=== PATIENT | female | born 1990 | race Caucasian/White ===

== ENCOUNTER → 2020-05-14 16:12 | Outpatient (REF) | payer OTHER, SELFPAY | LOC: ANHLAB 16:12 | PROVIDERS: Visit Provider Surgery Plastic and Reconstructive Surgery | DX: L72.8 Other follicular cysts of the skin and subcutaneous tissue (principal) | CPT/HCPCS: 88304 ==

== ENCOUNTER → 2020-12-15 09:10 | Outpatient (CLI) | payer OTHER, SELFPAY ==
--- NOTE | ~2020-12-15 | CT_ITS ---
EXAMINATION: CT soft tissue neck w con DATE: 12/15/2020 09:36 INDICATION: Neck lump. TECHNIQUE: Computed tomography (CT) of the neck was performed with 75 mL Omnipaque-350 intravenous co ntrast. Automated exposure control and iterative reconstruction technique were employed. The dose-cole gth product was 410.72 mGy-cm. COMPARISON: None FINDINGS: There is a skin marker at the right posterior neck. There is no abnormal mass in this area. There are no pathologically enlarged lymph nodes. The cervical carotid arteries are normal. There ar e mucous retention cysts in the sphenoid and left maxillary sinuses. The mastoid air cells are normal . There is mild cervical spondylosis. IMPRESSION: 1. No abnormal mass or lymphadenopathy. Reviewed, dictated and finalized at location A.
== END ==
PROVIDERS: Visit Provider Otolaryngology
DX: R22.1 Localized swelling, mass and lump, neck (principal)
CPT/HCPCS: 70491; Q9967

== ENCOUNTER 2025-08-26 15:56 | Emergency (ER) | payer OTHER, SELFPAY ==
[2025-08-26 16:10] VITALS: BP 134/93; PULSE 76; RESP 18; TEMP 36.6; O2SAT 100
--- NOTE | 2025-08-26 16:31 | ED_ITS ---
HPI - General Adult General Chief complaint: Skin/Abscess/Foreign Body Stated complaint: anal pain Source: patient Mode of arrival: ambulatory Limitations: no limitations History of Present Illness HPI narrative: this is a 34-year-old female who presents to the urgent care today with reports a lump that is painful on her rectum. Patient states she woke up with pain in her rectal area. She wore a thong to bed, she believed this was why it hurt. will be morning she used hemorrhoid cream with lidocaine which relieved the pain. She states does agree more often began to hurt again so she presents to the urgent care for evaluation. She denies any bleeding, she denies any difficulty with bowel movements. She denies any nausea, vomiting or diarrhea. Location: buttocks Radiation: non-radiation Severity: mild Quality: aching Pain Consistency: intermittent Relieving factors: medication Exacerbating factors: none Associated symptoms: denies other symptoms Treatments prior to arrival: other ( Hemorrhoid cream) Related Data Home Medications ?Medication ?Instructions ?Recorded ?Confirmed ?Last Taken ?Type bupropion HCl 300 mg 24 hr tablet, mg PO 08/26/25 Unk nown History extended release dextroamphetamine-amphetamine 10 08/26/25 Unknown Hi story mg tablet Allergies Allergy/AdvReac Type Severity Reaction Status Date / Time hydrocodone Allergy Mild Hives Verified 08/26/25 16:17 Review of Systems Review of Systems: All systems reviewed & are unremarkable except as noted in HPI and below PMFSH Surgical History Surgical History History of tonsillectomy Exam Const: General: healthy appearing Nutritional Appearance: well nourished Orientation/consciousness: patient oriented x3 Limitations: no limitations HENMT: Head: normal to inspection Face and sinus: normal facial exam Mouth: Yes Normal oral and palatal mucosa present Teeth and gingiva: dentition normal Eyes: Conjunctivae: conjunctivae normal Pupils: Equal, round and reactive pupils present EOM: EOMs intact bilaterally Neck: Neck: normal visual inspection and no lymphadenopathy Resp: Effort & Inspection: normal respiratory effort Auscultation: clear to auscultation bilaterally Cardio: Rate: regular rate Rhythm: regular rhythm GI: GI Palp: Yes Soft to palpation Auscultation: normal bowel sounds Rectal Exam: normal sphincter tone and hemorrhoids (noted at the 3 o'clock of rectum. ) Back/Spine/Pelvis: Back: no CVA tenderness Skin: General skin exam: normal color Rashes: no rashes Wounds: no wounds Neuro: General: patient oriented x3 Cranial nerves: Yes Nystagmus not present Speech: normal speech Gait exam (Neuro): Normal gait present Extrem: General: normal to inspection and no clubbing, cyanosis or edema Psych: Mental Status: mental status grossly normal Affect: normal affect Attitude: cooperative Course Course Emergency Course: this is a 34-year-old female who presents to the urgent care today with reports a lump that is painful on her rectum. Patient states she woke up with pain in her rectal area. She wore a thong to bed, she believed this was why it hurt. will be morning she used hemorrhoid cream with lidocaine which relieved the pain. She states does agree more often began to hurt again so she presents to the urgent care for evaluation. She denies any bleeding, she denies any difficulty with bowel movements. She denies any nausea, vomiting or diarrhea. vital signs stable patient educated on exam and possible concerning symptoms. During exam noted the patient has hemorrhoid at the 3 o'clock area on her rectum. Nonthrombosed, no erythema or edema. No bleeding noted. No excoriation. Educated patient on findings, treatment, and outpatient management. Answered all questions to her satisfaction she is agreeable to this plan to follow-up with her PCP for possible referral if symptoms worsen or continue. Educated patient to rest, avoid strenuous activity, continue with hemorrhoid cream with lidocaine, continue with tucks pads as instructed, avoid straining to have bowel movements, wear cotton underwear, shift weight when sitting often, follow up with your primary MD for further exam and treatment, return to the ER or urgent care with any worrisome sign or symptom. patient denies any further needs or concerns to be addressed prior to discharge Level of Care: Express Care Visit Vital Signs Vital signs: Vital Signs Temperature 97.9 F 08/26/25 16:10 Pulse Rate 76 08/26/25 16:10 Respiratory Rate 18 08/26/25 16:10 Blood Pressure 134/93 H 08/26/25 16:10 Pulse Oximetry 100 08/26/25 16:10 Oxygen Delivery Room Air 08/26/25 16:10 Temperature 97.9 F 08/26/25 16:10 Pulse Rate 76 08/26/25 16:10 Respiratory Rate 18 08/26/25 16:10 Blood Pressure 134/93 H 08/26/25 16:10 Pulse Oximetry 100 08/26/25 16:10 Oxygen Delivery Room Air 08/26/25 16:10 MDM MDM Narrative Medical decision making narrative: this is a 34-year-old female who presents to the urgent care today with reports a lump that is painful on her rectum. Patient states she woke up with pain in her rectal area. She wore a thong to bed, she believed this was why it hurt. will be morning she used hemorrhoid cream with lidocaine which relieved the pain. She states does agree more often began to hurt again so she presents to the urgent care for evaluation. She denies any bleeding, she denies any difficulty with bowel movements. She denies any nausea, vomiting or diarrhea. vital signs stable patient educated on exam and possible concerning symptoms. During exam noted the patient has hemorrhoid at the 3 o'clock area on her rectum. Nonthrombosed, no erythema or edema. No bleeding noted. No excoriation. Educated patient on findings, treatment, and outpatient management. Answered all questions to her satisfaction she is agreeable to this plan to follow-up with her PCP for possible referral if symptoms worsen or continue. Educated patient to rest, avoid strenuous activity, continue with hemorrhoid cream with lidocaine, continue with tucks pads as instructed, avoid straining to have bowel movements, wear cotton underwear, shift weight when sitting often, follow up with your primary MD for further exam and treatment, return to the ER or urgent care with any worrisome sign or symptom. patient denies any further needs or concerns to be addressed prior to discharge Differential Diagnosis Differential Diagnosis: STI, hemorrhoids, rectal fissure Medical Records I have reviewed the following patient records and this information was taken into consideration when formulating the assessment and plan.: previous clinic visits Discharge Plan Discharge Clinical Impression: Hemorrhoid Qualifiers: Hemorrhoid type: unspecified Qualified Code(s): K64.9 - Unspecified hemorrhoids Patient Disposition: Home Condition: Unstable Instructions: Hemorrhoids (ED) Additional Instructions: rest avoid strenuous activity continue with hemorrhoid cream with lidocaine continue with tucks pads as instructed avoid straining to have bowel movements wear cotton underwear shift weight when sitting often follow up with your primary MD for further exam and treatment return to the ER or urgent care with any worrisome sign or symptom. Patient Language: Grenadian Prescriptions: No Action dextroamphetamine-amphetamine 10 mg tablet bupropion HCl 300 mg tablet extended release 24 hr PO cephalexin [Keflex] 250 mg capsule 250 mg PO Q6H Qty: 28 0RF Follow-up/Referrals: Mony,FLACO Abel [Primary Care Provider, Unknown] Time of Disposition: 16:34
--- OUTSIDE RECORDS SUMMARY | 2025-08-26 17:09 | XMS_ITS | Encounter Summary ---
Author Organization [facility] Address [address] [place] [address] Care Team Providers Care Director Of Strategic Marketing Name Role Phone Kristal Sykes NP Primary Care Provider [phone] Encounter Details Date Type Department Care Team (Late st Contact Info) Description 03/01/2023 Bizot Message Enc [facility] Family [facility] - [place] [address] [facility] [address] [place] [id number] Kristal Sykes, ABENA [address] [place] [address] Wellbutrin Refill Social History Tobacco Use Types Packs/Day Years Used Date Smoking Tobacco: Never Passive Smoke Exposure: Never Smokeless Tobacco: Never Alcohol Use Standard Drinks/Week Comments Yes 0 (1 standard drink = 0.6 oz pur e alcohol) Rare, maybe once a month Humiliation, Afraid, Rape, and Kick questionnair e Answer Date Recorded Within the last year, have y ou been afraid of your partner or ex-partner? No 08/11/2022 Within the last year, have y ou been humiliated or emotionally abused in other ways by your partner or ex-partner? No Within the last year, have y ou been kicked, hit, slapped, or otherwise physically hurt by your partner or ex-partner? No 08/11/2022 Within the last year, have y ou been raped or forced to have any kind of sexual activity by your partner or ex-partner? No 08/11/2022 Social Connection and Isolation Panel Answer Date Recorded In a typical week, how many times do you talk on the phone with family, friends, or neighbors? More than three times a week 08/11/2022 How often do you get togethe r with friends or relatives? More than three times a week 08/11/2022 How often do you attend chur or sikhism services? 1 to 4 times per year 08/11/2022 Do you belong to any clubs o r organizations such as zoroastrianism groups, unions, fraternal or athletic groups, or school groups? No 08/11/2022 How often do you attend meet ings of the clubs or organizations you belong to? Never 08/11/2022 Are you , , di vorced, , never , or living with a partner? 08/11/2022 AUDIT-C Answer Date Recorded Q1: How often do you have a drink containing alcohol? Never 08/11/2022 Q2: How many drinks containi ng alcohol do you have on a typical day when you are drinking? Patient does not drink Q3: How often do you have si x or more drinks on one occasion? Never 08/11/2022 Overall Financial Resource Strain (CARDIA) Answe r Date Recorded How hard is it for you to pa y for the very basics like food, housing, medical care, and heating? Not hard at all 08/11/2022 PHQ-2 Answer Date Recorded Patient Health Questionnaire-2 Score 1 12/22/2022 [facility]ational Stress Questionnaire Answer Date Recorded Do you feel stress - tense, restless, nervous, or anxious, or unable to sleep at night because your mind is troubled all the time - these days? Not at all 08/11/2022 Exercise Vital Sign Answer Date Recorde d On average, how many days pe r week do you engage in moderate to strenuous exercise (like a brisk walk)? 4 days 08/11/2022 On average, how many minutes do you engage in exercise at this level? 30 min 08/11/2022 Hunger Vital Sign Answer Date Recorded Within the past 12 months, y ou worried that your food would run out before you got the money to buy more. Never true 08/11/20 22 Within the past 12 months, t he food you bought just didn't last and you didn't have money to get more. Never true 08/11/2022 PRAPARE - Transportation Answer Date Re corded In the past 12 months, has l ack of transportation kept you from medical appointments or from getting medications? No 03/2022 In the past 12 months, has l ack of transportation kept you from meetings, work, or from getting things needed for daily living? No 08/11/2022 Housing Stability Vital Sign Answer Francis e Recorded In the last 12 months, was t here a time when you were not able to pay the mortgage or rent on time? No 08/11/2022 In the last 12 months, how many places have you lived? 2 08/11/2022 In the last 12 months, was t here a time when you did not have a steady place to sleep or slept in a jail (including now)? No 08/11/2022 Depression Answer Date Recor ded Last EPDS Total Score 2 08/15/2022 Last EPDS Self Harm Result Sometimes 08/15 Comments No Sex and Gender Information Value Date Recorded Sex Assigned at Not on file Legal Sex Female 6:06 PM CDT Gender Identity Not on file Sexual Orientation Not on file documented as of this encounter Functional Status * RETIRED Are you deaf or do you have serious difficulty hearing Answer Date of Assessment Author Status No 08/11/2022 8:32 PM HOT FRAME TENDER Activ e * RETIRED Are you blind or do you have serious difficulty seeing, even when wearing glasses? Answer Date of Assessment Author Status No 08/11/2022 8:32 PM HOT FRAME TENDER Activ e * Do you have serious difficulty walking or climbing stairs? Answer Date of Assessment Author Status No 08/11/2022 8:32 PM Pearl Tobias RN Active * Do you have difficulty dressing or bathing? Answer Date of Assessment Author Status No 08/11/2022 8:32 PM Pearl Tobias RN Active * Because of a physical, mental, or emotional condition, do you have difficulty doing errands alone such as visiting a doctor's office or shopping? Answer Date of Assessment Author Status No 08/11/2022 8:32 PM Pearl Tobias RN Active documented as of this encounter Mental Status * Because of a physical, mental, or emotional condition, do you have serious difficulty concentrating, remembering, or making decisions? Answer Entry Date Author Status No 08/11/2022 8:32 PM HOT FRAME TENDER Pearl Addison RN Active documented in this encounter Plan of Treatment Not on file documented as of this encounter Visit Diagnoses Not on filedocumented in this encounter Additional Health Concerns Infection Onset Date Last Indicated Resolved Time COVID-19 Rule Out 09/08/2023 09/08/2023 09/08/2023 2:24 PM HOT FRAME TENDER COVID-19 Rule Out 11/02/2023 11/02/2023 11/02/2023 4:27 PM HOT FRAME TENDER Assessment Noted Time PHQ-9 Depression Total Score: 11 023 11:20 AM CDT documented as of this encounter Care Teams Director Of Strategic Marketing Relationship Specialty Start Date End Date Kristal Sykes NP [address] [place] [address] PCP - General NURSE PRACTITIONER 12/20/22 documented as of this encounter
--- OUTSIDE RECORDS SUMMARY | 2025-08-26 17:09 | XMS_ITS | Encounter Summary ---
Author Organization [facility] Address [facility] [place] [address] Care Team Providers Care Tea Blender Name Role Phone Lauryn Landers [employer] Primary Care Provider [phone] Kristal Sykes [employer] Primary Care Provider [phone] Encounter Details Date Type Department Care Team (Late Contact Info) Description 08/26/2022 ADTELLIGENCE Message [facility] [employer] [facility] [address] [place] [address] Doculynxalba, [facility] Provider Proof of Name Change Needed Social History Tobacco Use Types Packs/Day Years Used Date Smoking Tobacco: Never Smokeless Tobacco: Never Alcohol Use Standard Drinks/Week Comments Never 0 (1 standard drink = 0.6 oz pur e alcohol) Humiliation, Afraid, Rape, and Kick questionnair e [...] How often do you attend chur or sabianist services? 1 to 4 times per year 08/11/2022 Do you belong to any clubs o r organizations such as druze groups, unions, fraternal or athletic groups, or [...] at all 08/11/2022 PHQ-2 Answer Date Recorded PHQ-2 Score 0 12/25/2018 [facility] - Occupational Stress Questionnaire Answer Date Recorded [...] place to sleep or slept in a intermediate (including now)? No 08/11/2022 Depression Answer Date Recor ded Last EPDS Total Score 2 08/15/2022 Last EPDS Self Harm Result Sometimes 08/15 Comments No Sex and Gender Information Value Date Recorded Sex Assigned at Not on file Legal Sex Female 6:06 PM CDT Gender Identity Not on file Sexual Orientation Not on file COVID-19 Exposure Response Date Recorded In the last 10 days, have yo u been in contact with someone who was confirmed or suspected to have Coronavirus/COVID-19? No / Unsure 08/11/2022 8:20 PM LINING INSERTER documented as of this encounter Functional Status * RETIRED Are you deaf or do you have serious difficulty hearing Answer Date of Assessment Author Status No 08/11/2022 8:32 PM LINING INSERTER Activ e * RETIRED Are you blind or do you have serious difficulty seeing, even when wearing glasses? Answer Date of Assessment Author Status No 08/11/2022 8:32 PM LINING INSERTER Activ e * Do you have serious difficulty walking or climbing stairs? Answer Date of Assessment Author Status No 08/11/2022 8:32 PM LINING INSERTER Pearl Addison RN Active * Do you have difficulty dressing or bathing? Answer Date of Assessment Author Status No 08/11/2022 8:32 PM LINING INSERTER Pearl Addison RN Active * Because of a physical, mental, or emotional condition, do you have difficulty doing errands alone such as visiting a doctor's office or shopping? Answer Date of Assessment Author Status No 08/11/2022 8:32 PM LINING INSERTER Wells, Pearl C, RN Active documented as of this encounter Mental Status * Because of a physical, mental, or emotional condition, do you have serious difficulty concentrating, remembering, or making decisions? Answer Entry Date Author Status No 08/11/2022 8:32 PM LINING INSERTER Pearl Addison RN Active documented in this encounter Plan of Treatment Not on file documented as of this encounter Visit Diagnoses Not on filedocumented in this encounter Additional Health Concerns Infection Onset Date Last Indicated Resolved Time COVID-19 Rule Out 09/08/2023 09/08/2023 09/08/2023 2:24 PM LINING INSERTER COVID-19 Rule Out 11/02/2023 11/02/2023 11/02/2023 4:27 PM LINING INSERTER Assessment Noted Time PHQ-9 Depression Total Score: 4 12/21/19 19 12:27 PM CDT documented as of this encounter Care Teams Tea Blender Relationship Specialty Start Date End Date Lauryn Landers NP [address] [facility], [place] [address] PCP - General Nurse Practitioner Family 12/19/1812/04 Kristal Sykes NP [address] [place] [address] PCP - General NURSE PRACTITIONER 12/20/22 documented as of this encounter
--- OUTSIDE RECORDS SUMMARY | 2025-08-26 17:09 | XMS_ITS | Encounter Summary ---
Author Organization [facility] Address [address] [place] [address] Care Team Providers Care Leather Belt Maker Name Role Phone Unavailable Primary Care Provider Unavailabl e Prior Encounters Date Type Department Care Team Description 06/03/2022 Travel 06/03/2022 2:00 PM CDT Office Visit [facility] [address], [facility] [address] [place] [address] Kelsey Newell, [facility] 06/01/2022 Travel 06/01/2022 3:00 PM CDT Office Visit [facility] [address], [facility] [address] [place] [address] Kelsey Newell, [facility] 05/17/2022 Travel 05/17/2022 1:00 PM CDT Office Visit [facility] [address], [place] [address] [place] [address] Mindi Espana, DDS 04/21/2022 Travel 04/21/2022 12:00 PM CDT Office Visit [facility] [address], [place] [address] [place] [address] Mikayla Kaiser, DMD 09/24/2019 Converted 13x Documents [facility] [address], [address] [place] [phone] <No scans attached> 09/24/2019 Converted CPS Chart Documents [facility] [address], [address] [place] [phone] <No scans attached> 09/24/2019 Converted CPS Chart Documents [facility] [address], [address] [place] [phone] <No scans attached> 09/24/2019 Converted 13x Documents [facility] [place] [facility] [address] [place] [phone] <No scans attached> Last Filed Vital Signs Vital Sign Reading Time Taken Comments Blood Pressure 126/72 06/01/2022 5:34 PM CDT Pulse - - Temperature - - Respiratory Rate - - Oxygen Saturation - - Inhaled Oxygen Concentration - - Weight - - Height - - Body Mass Index - - Plan of Treatment Not on file Procedures Procedure Name Priority Date/Time Associated Diagnosis Comments TOPICAL APPLICATION OF FLUORIDE VARNISH Routine 06/03/2022 2:00 PM CDT UL PERIODONTAL SCALING AND ROOT PLANING - ONE TO THREE TEETH PER QUADRANT Routine 06/03/2022 2:00 PM CDT LL PERIODONTAL SCALING AND ROOT PLANING - ONE TO THREE TEETH PER QUADRANT Routine 06/03/2022 2:00 PM CDT ORAL HYGIENE INSTRUCTIONS Routine 2021 3:00 PM CDT LR PERIODONTAL SCALING AND ROOT PLANING - ONE TO THREE TEETH PER QUADRANT Routine 06/01/2022 3:00 PM CDT UR PERIODONTAL SCALING AND ROOT PLANING - ONE TO THREE TEETH PER QUADRANT Routine 06/01/2022 3:00 PM CDT INTRAORAL PHOTO Routine 05/17/2022 1:00 PM CDT INTRAORAL PHOTO Routine 05/17/2022 1:00 PM CDT INTRAORAL PHOTO Routine 05/17/2022 1:00 PM CDT INTRAORAL PHOTO Routine 05/17/2022 1:00 PM CDT INTRAORAL - COMPREHENSIVE SERIES OF RADIOGRAPHIC IMAGES Routine 05/17/2022 1:00 PM CDT COMPREHENSIVE ORAL EVALUATION - NEW OR ESTABLISHED PATIENT Routine 05/17/2022 1:00 PM CDT 31 CEREC CROWN Routine 05/17/2022 12:00 AM CDT 31 ROOT CANAL Routine 05/17/2022 12:00 AM CDT BITEWING - SINGLE RADIOGRAPHIC IMAGE Routine 04/21/2022 12:00 PM CDT ADDITIONAL X-RAY Routine 04/21/2022 12:0 0 PM CDT LIMITED ORAL EVALUATION - PROBLEM FOCUSED Routine 04/21/2022 12:00 PM CDT MISSED APPOINTMENT Routine 09/07/2016 1: 00 AM MST ORTHO CONSULT Routine 03/09/2016 1:00 AM MDT ADJUNCTIVE PRE-DIAGNOSTIC TEST THAT AIDS IN DETECTION OF MUCOSAL ABNORMALITIES Routine 02/18/2016 1:00 AM MDT ORAL HYGIENE INSTRUCTIONS Routine 2015 1:00 AM MDT PROPHYLAXIS - ADULT Routine 02/18/2016 1 :00 AM MDT COMPREHENSIVE ORAL EVALUATION - NEW OR ESTABLISHED PATIENT Routine 02/18/2016 1:00 AM MDT PANORAMIC RADIOGRAPHIC IMAGE Routine 02/18/2016 1:00 AM MDT BITEWINGS - FOUR RADIOGRAPHIC IMAGES Routine 02/18/2016 1:00 AM MDT SINGLE X-RAY Routine 02/18/2016 1:00 AM MDT SINGLE X-RAY Routine 02/18/2016 1:00 AM MDT SINGLE X-RAY Routine 02/18/2016 1:00 AM MDT SINGLE X-RAY Routine 02/18/2016 1:00 AM MDT SINGLE X-RAY Routine 02/18/2016 1:00 AM MDT SINGLE X-RAY Routine 02/18/2016 1:00 AM MDT INTRAORAL PHOTO Routine 02/18/2016 1:00 AM MDT INTRAORAL PHOTO Routine 02/18/2016 1:00 AM MDT INTRAORAL PHOTO Routine 02/18/2016 1:00 AM MDT INTRAORAL PHOTO Routine 02/18/2016 1:00 AM MDT INTRAORAL PHOTO Routine 02/18/2016 1:00 AM MDT INTRAORAL PHOTO Routine 02/18/2016 1:00 AM MDT INTRAORAL PHOTO Routine 02/18/2016 1:00 AM MDT INTRAORAL PHOTO Routine 02/18/2016 1:00 AM MDT INTRAORAL PHOTO Routine 02/18/2016 1:00 AM MDT INTRAORAL PHOTO Routine 02/18/2016 1:00 AM MDT CANCELLED APPOINTMENT Routine 02/11/2016 1:00 AM MDT Visit Diagnoses Not on file Insurance PPO
--- OUTSIDE RECORDS SUMMARY | 2025-08-26 17:09 | XMS_ITS | Encounter Summary ---
Author Organization [facility] Address [address] [place] [address] Care Team Providers Care Mica Washer Gluer Name Role Phone Kristal Sykes NP Primary Care Provider [phone] Encounter Details Date Type Department Care Team (Late st Contact Info) Description 11/07/2023 Resident Researcht Message Enc [facility] Medical [facility] Family Medicine - [place] [address] [facility] [address] [place] [id number] Kristal Sykes, ABENA [address] [place] [address] Follow up Social History Tobacco Use Types Packs/Day Years [...] 08/11/2022 How often do you attend chur ch or cheondoism services? 1 to 4 times per year 08/11/2022 Do you belong to any clubs o r organizations such as judaism groups, unions, fraternal or athletic groups, or [...] Recorded Patient Health Questionnaire-2 Score 1 12/22/2022 [facility] - Occupational Stress Questionnaire Answer [...] place to sleep or slept in a mcc (including now)? 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 Answer Date of Assessment Author Status No 08/11/2022 8:32 PM ASSISTANT PROFESSOR OF DRAMA Activ e * Do you have serious [...] Date Author Status No 08/11/2022 8:32 PM ASSISTANT PROFESSOR OF DRAMA Pearl Addison RN Active documented in this encounter Plan of Treatment Not on file documented as of this encounter Visit Diagnoses Not on filedocumented in this encounter Additional Health Concerns Assessment Noted Time PHQ-9 Depression Total Score: 11 023 11:20 AM CDT documented as of this encounter Care Teams Mica Washer Gluer Relationship Specialty Start Date End Date Kristal Sykes NP [address] [place] [address] PCP - General NURSE PRACTITIONER 12/20/22 documented as of this encounter
--- OUTSIDE RECORDS SUMMARY | 2025-08-26 17:09 | XMS_ITS | Clinical Summary ---
Author Organization [facility] Health Address [address] [facility] [place] [address] Care Team Providers Care Mink Farmer Name Role Phone Unavailable Primary Care Provider Unavailabl e Allergies Active Allergy Reactions Criticality Noted Date Comments Meperidine Hives Low 12/20/2018 Other reaction(s): Hives Other reaction(s): Hives Other reaction(s): Hives Other reaction(s): Hives Other reaction(s): Hives Other reaction(s): Hives Other reaction(s): Hives Other reaction(s): Hives Other reaction(s): Hives Other reaction(s): Hives Other reaction(s): Hives Other reaction(s): Hives Medications [id number] C ACID ORAL Take by mouth. Active buPROPion (WELLBUTRIN) 37.5 MG tablet 01/21/2022 Acti ve buPROPion XL (WELLBUTRIN XL) 150 mg 24 hr tablet 01/22/2022 Active escitalopram (LEXAPRO) 10 mg tablet Take 1/2 tablet for 7 days then increase to 1 tablet in the morning 04/27/2021 Active Active Problems Problem Noted Date Diagnosed Date 01/11/2022 Overview (05/17/2022): Dating: uLMP, by 8 week US Rh status: pos Indication for bASA: no Genetics: low risk Anatomy: scheduled Gender: its a girl! DMS: early DMS today GBS: Tdap: Flu: [ ] Offer COVID booster BCM: B/B: Delivery planning/Pain control: Class 3 severe obesity witho ut serious comorbidity with body mass index (BMI) of 40.0 to 44.9 in adult (CMS/HCC) 10/05/2021 Overview (06/03/2022): --Growth US q 4 wks -- echo pending --Wkly BPP after 36 wks / plan for delivery by 40 wks unless otherwise indicated Anxiety 04/20/2021 Overview (05/17/2022): Continues on wellbutrin daily Feels stable on this regimen Discussed risks and benefits of keeping on this medication because she is stable vs changing to new regimen during this stressful time Recommend keeping medication as is for now. Can discuss considerations closer to delivery again Social History Tobacco Use Types Packs/Day Years Used Date Smoking Tobacco: Never Smokeless Tobacco: Never Tobacco Cessation:Counseling Given: Not Answered Alcohol Use Standard Drinks/Week Comments Not Currently 0 (1 standard drink = 0.6 oz pur e alcohol) Comments Unknown Sex and Gender Information Value Date Recorded Sex Assigned at Not on file Legal Sex Female 11:11 AM PST Gender Identity Not on file Sexual Orientation Not on file Last Filed Vital Signs Vital Sign Reading Time Taken Comments Blood Pressure 126/72 06/01/2022 5:34 PM CDT Pulse - - Temperature - - Respiratory Rate - - Oxygen Saturation - - Inhaled Oxygen Concentration - - Weight - - Height - - Body Mass Index - - Plan of Treatment Health Maintenance Due Date Last Done Comments Periodontal Maintenance 1990 Velscope Screening 08/19/2016 02/18/2016 Dental X-Ray: Panoramic 02/18/2019 02/18/2016 Dental Oral Exam 11/15/2022 05/17/2022, 02/18/2016 Dental X-Ray: Bitewings 11/15/2022 05/17/2022 Scaling and Root Planing 06/17/2024 022, 06/03/2022, 06/01/2022, Additional history exists Dental X-Ray: Full Mouth 05/18/2025 05/17/2022 Procedures Procedure Name Priority Date/Time Associated Diagnosis Comments LL PERIODONTAL SCALING AND ROOT PLANING - ONE TO THREE TEETH PER QUADRANT Routine 06/03/2022 2:00 PM CDT INTRAORAL - COMPREHENSIVE SERIES OF RADIOGRAPHIC IMAGES Routine 05/17/2022 1:00 PM CDT COMPREHENSIVE ORAL EVALUATION - NEW OR ESTABLISHED PATIENT Routine 05/17/2022 1:00 PM CDT PANORAMIC RADIOGRAPHIC IMAGE Routine 02/18/2016 1:00 AM MDT ADJUNCTIVE PRE-DIAGNOSTIC TEST THAT AIDS IN DETECTION OF MUCOSAL ABNORMALITIES Routine 02/18/2016 1:00 AM MDT from Last 3 Months or Most Recently Relevant to Health Maintenance Insurance
--- OUTSIDE RECORDS SUMMARY | 2025-08-26 17:10 | XMS_ITS | Encounter Summary ---
Author Organization [facility] Address [address] [place] [address] Care Team Providers Care Overhead Crane Technician Name Role Phone Kristal Sykes NP Primary Care Provider [phone] Encounter Details Date Type Department Care Team (Late st Contact Info) Description 08/26/2025 Valor Water Analyticst Message Enc [facility] Medical Group Family Medicine - [place] [address] [facility] [address] [place] [address] [phone] Kristal Sykes, ABENA [address] [place] [address] thrombosed external hemorrhoid Social History Tobacco Use Types Packs/Day Years [...] often do you attend chur ch or faith services? 1 to 4 times per year 08/11/2022 Do you belong to any clubs o r organizations such as restoration groups, unions, fraternal or athletic groups, or [...] Recorded Patient Health Questionnaire-2 Score 1 [facility] - Occupational Stress Questionnaire Answer Date Recorded [...] Assessment Author Status No 08/11/2022 8:32 PM COSTUMED CHARACTER Activ e * RETIRED Are you blind or do you have serious difficulty seeing, even when wearing glasses? Answer Date of Assessment Author Status No 08/11/2022 8:32 PM COSTUMED CHARACTER Activ e * Do you have serious [...] Date Author Status No 08/11/2022 8:32 PM COSTUMED CHARACTER Pearl Addison RN Active documented in this encounter Progress Notes * Kristal Sykes NP - 08/26/2025 9:38 AM CST Can offer her an appointment whenI return.. If no openings recommend urgent care since she is in pain so she can be offered treatment UMED CHARACTER documented in this encounter Plan of Treatment Not on file documented as of this encounter Visit Diagnoses Not on filedocumented in this encounter Additional Health Concerns Assessment Noted Time PHQ-9 Depression Total Score: 11 023 11:20 AM CDT documented as of this encounter Care Teams Overhead Crane Technician Relationship Specialty Start Date End Date Kristal Sykes NP [address] [place] [address] PCP - General NURSE PRACTITIONER 12/20/22 documented as of this encounter
--- OUTSIDE RECORDS SUMMARY | 2025-08-26 17:10 | XMS_ITS | Clinical Summary ---
Author Organization [facility] Address [facility] [place] [address] Care Team Providers Care Oyster Shipper Name Role Phone Kristal Sykes NP Primary Care Provider [phone] Allergies Active Allergy Reactions Criticality Noted Date Comments Meperidine Hives 12/20/2018 Oxycodone-Acetaminophen Swelling,Redness 2021 Skin redness and lip swelling Medications buPROPion XL (WELLBUTRIN XL) 150 MG 24 hr tabletIndication s:Generalized anxiety disorder Take 1 tablet (150 mg total) by mouth daily. 90 tablet 1 4 Active scopolamine (TRANSDERM-SCOP) 1 MG/3DAYS patchIndications :Motion sickness, initial encounter Place 1 patch onto the skin every third day. 10 patch 4 Active Additional Information Patient not taking.Reported on 11/02/2023 ondansetron (ZOFRAN) 4 MG tabletIndication s:Nausea and vomiting, unspecified vomiting type Take 1 tablet (4 mg total) by mouth every 8 (eight) hours as needed. 20 tablet 4 Active Active Problems Problem Noted Date Diagnosed Date anxiety 12/22/2022 depression 12/22/2022 Obesity (BMI 35.0-39.9 without comorbidity) 12/04 Vaginal delivery 08/14/2022 Normal course 08/14/2022 Preeclampsia 08/14/2022 -induced hypertension in third trimeste r 08/11/2022 Resolved Problems Problem Noted Date Diagnosed Date Resolved Date 08/11/2022 08/14/2022 39 weeks gestation of 08/11/2022 08/14/2022 Excessive growth affec ting management of mother in third trimester, antepartum 08/11/2022 08/14/2022 Encounters Date Type Department Care Team Description 08/26/2025 MyChart Message Enc [facility] Medical Group Family Medicine - [place] [address] [place] [address] Kristal Sykes NP thrombosed external hemorrhoid from Last 3 Months Immunizations Immunization Administration Dates Next Due Tdap (Generic) 05/26/2022,02/17/2021 Family History Medical History Relation Comments Cancer Father Testicular cancer Father Breast Cancer Maternal Aunt Cancer Maternal Aunt Cancer Paternal Grandfather Relation Status Comments Father Maternal Aunt Paternal Grandfather Social History Tobacco Use Types Packs/Day Years Used Date Smoking Tobacco: Never Passive Smoke Exposure: Never Smokeless Tobacco: Never Tobacco Cessation:Counseling Given: No Alcohol Use Standard Drinks/Week Comments Yes 0 [...] week 08/11/2022 How often do you attend [facility] or lutheran services? 1 to 4 times per year 08/11/2022 Do you belong to any clubs o r organizations such as shinto groups, unions, fraternal or athletic groups, or [...] Recorded Patient Health Questionnaire-2 Score 1 12/22/2022 [facility]at ional [facility] - Occupational Stress Questionnaire Answer [...] place to sleep or slept in a detention (including now)? No 08/11/2022 Depression Answer Date [...] Sign Reading Time Taken Comments Blood Pressure 122/88 11/02/2023 4:00 PM STEEL CONSTRUCTION WORKER Pulse 90 11/02/2023 3:45 PM STEEL CONSTRUCTION WORKER Temperature 37 C (98.6 F) 11/02/2023 3:45 PM STEEL CONSTRUCTION WORKER Respiratory Rate 18 11/02/2023 3:45 PM STEEL CONSTRUCTION WORKER Oxygen Saturation 97% 11/02/2023 3:45 PM STEEL CONSTRUCTION WORKER Inhaled Oxygen Concentration - - Weight 117.8 kg (259 lb 12.8 oz) 11/02/2023 3:45 PM STEEL CONSTRUCTION WORKER Height 177.8 cm (5' 10) 11/02/2023 3:45 PM STEEL CONSTRUCTION WORKER Body Mass Index 37.28 11/02/2023 3:45 PM STEEL CONSTRUCTION WORKER Plan of Treatment Health Maintenance Due Date Last Done Comments Cervical Cancer Screening Pa p Smear (Age 30 to 64) Every 3 Years 1990 Hepatitis B Vaccines (1 of 3 - 19+ 3-dose series) 2009 HPV Vaccines (1 - 3-dose SCD M series) 2017 Cervical Cancer Screening Pa p with HPV Testing (Age 30 to 64) Every 5 Years 2020 Cervical Cancer Screening wi th HPV 2020 Annual Physical 12/23/2023 12/22/2022 PHQ-2 (Physician [facility]) 09/05/2024 COVID-19 Vaccine (2 - 2024-2 6 season) 2025 05/06/2021 Influenza Adult (#1) 2025 DTaP, Tdap and Td Vaccines ( 3 - Td or Tdap) 05/26/2032 05/26/2022, 02/17/2021 Hepatitis C Completed 08/11/2022 Hepatitis A Vaccines Aged Out No long er eligible based on patient's age to complete this topic Meningococcal B Vaccine Aged Out No l onger eligible based on patient's age to complete this topic Meningococcal Vaccine Aged Out No jayden michael eligible based on patient's age to complete this topic Pneumococcal Vaccine: Pediatrics (0 to 5 Years) and At-Risk Patients (6 to 49 Years) Aged Out No longer eligible b ased on patient's age to complete this topic RSV Immunizations Under 20 Months Aged Out No longer eligible b ased on patient's age to complete this topic Procedures Procedure Name Priority Date/Time Associated Diagnosis Comments HEPATITIS C ANTIBODY Routine 08/11/2022 10:32 PM STEEL CONSTRUCTION WORKER from Last 3 Months or Most Recently Relevant to Health Maintenance Results * HEPATITIS C ANTIBODY W/REFLEX (08/11/2022 10:32 PM STEEL CONSTRUCTION WORKER) HEPATITIS C AB NON-REACTI VE NON-REACTI VE 08/12/2022 4:11 AM STEEL CONSTRUCTION WORKER [facility] 08/11/2022 10:3 2 PM STEEL CONSTRUCTION WORKER Gaby Pfeiffer MD LABORATORY Final Res ult [facility] [address] [place] [address], [place] [phone] from Last 3 Months or Most Recently Relevant to Health Maintenance Insurance [facility] Advance Directives * Full Code (Latest Code Status on File) Date Activated Date Inactivated Comments 08/12/2022 9:56 AM 08/14/2022 3:13 AM * Full Code Date Activated Date Inactivated Comments 08/11/2022 10:08 PM 08/12/2022 9:56 AM Care Teams Oyster Shipper Relationship Specialty Start Date End Date Kristal Sykes NP [address] [place] [address] PCP - General NURSE PRACTITIONER 12/20/22
== END 2025-08-26 16:35 | disposition home or self-care (01) ==
PROVIDERS: Emergency Provider Nurse Practitioner Family; PCP Nurse Practitioner
DX: K64.9 Unspecified hemorrhoids (principal)
CPT/HCPCS: 99211; G0463